=== PATIENT | male | born 1955 | race Two or more races ===

== ENCOUNTER 2017-07-09 20:15 | Emergency (ER) | payer MEDICAID ==
--- NOTE | 2017-07-09 21:35 | EDPHY ---
H & P Time Seen by Provider: 07/09/17 21:29 HPI/ROS: CHIEF COMPLAINT: Right upper dental pain HISTORY OF PRESENT ILLNESS: Feels like a cavity with toothache in gum swelling for the last 2 and half weeks. Taking meloxicam which helps with the pain. REVIEW OF SYSTEMS: No fever or chills and no difficulty swallowing or breathing. PAST MEDICAL HISTORY: Negative Social history: Has appointment with dentist this coming Tuesday General Appearance: Alert and conversant, cooperative. No trismus, normal pharynx. No external facial swelling. Gum swelling around the right most posterior molar with some dental tenderness to percussion. Normal breathing and normal voice. Emergency Department course/MDM: Oral amoxicillin. Declined pain medication. Has appointment with his dentist or plans to see him on Tuesday. Smoking Status: Former smoker Constitutional: Initial Vital Signs Temperature (C) 36.8 C 07/09/17 20:38 Heart Rate 72 07/09/17 20:38 Respiratory Rate 16 07/09/17 20:38 Blood Pressure 113/70 07/09/17 20:38 O2 Sat (%) 98 07/09/17 20:38 O2 Delivery Mode Room Air Allergies/Adverse Reactions: No Known Allergies Allergy (Unverified 07/09/17 20:41) Home Medications: Medication Instructions Recorded Amoxicillin Trihydrate 500 mg PO Q8 #30 cap 07/09/17 [Amoxicillin 500mg capsule] MDM/Departure - Depart Disposition: Home, Routine, Self-Care Clinical Impression: Toothache Condition: Good Instructions: Toothache (ED), Amoxicillin (By mouth) Additional Instructions: See youdentist Tuesday as planned. Return if you get worsening or severe pain, fever, facial swelling, trouble breathing or swallowing. Prescriptions: Amoxicillin Trihydrate [Amoxicillin 500mg capsule] 500 mg PO Q8 #30 cap Referrals: Shabana Chowdhury, PAC [Primary Care Provider] - As per Instructions
[2017-07-09 21:44] VITALS: BP 105/71; PULSE 68; RESP 20; TEMP 98.1; O2SAT 94
== END 2017-07-09 21:46 | disposition home or self-care (01) ==
DX: K08.89 Other specified disorders of teeth and supporting structures (principal); Z87.891 Personal history of nicotine dependence

== ENCOUNTER → 2018-08-18 | Outpatient (CLI) | payer MEDICAID | LOC: FIMAGING 10:21 | PROVIDERS: ATTEND Physician Assistant | DX: Z13.820 Encounter for screening for osteoporosis (principal); M85.88 Other specified disorders of bone density and structure, other site ==